=== PATIENT | male | born 1950 | race Two or more races ===

== ENCOUNTER 2023-02-25 08:19 | Emergency (ER) | payer MEDICARE, OTHER ==
[~2023-02-25] VITALS: Ht 157.5 cm; Wt 61.4 kg
[2023-02-25 09:04] VITALS: TEMP 97.9
[2023-02-25] MEDS ORDERED: ACETAMINOPHEN 500 MG TABLET PO ONE (09:15)
[2023-02-25] MEDS ORDERED: ACET-3385 PO (11:45)
[2023-02-25 12:15] VITALS: BP 154/76; PULSE 86; RESP 18
== END 2023-02-25 12:16 | disposition home or self-care (01) ==
LOC: EMS 08:19
DX: S20.20XA Contusion of thorax, unspecified, initial encounter (principal); G20.A1 Parkinson's disease without dyskinesia, without mention of fluctuations; R10.12 Left upper quadrant pain; Z88.0 Allergy status to penicillin; Y08.89XA Assault by other specified means, initial encounter; Y93.89 Activity, other specified; Y92.89 Other specified places as the place of occurrence of the external cause; Y99.8 Other external cause status
CPT/HCPCS: 71101; 74176; 99284; Z7502; Z7610